=== PATIENT | male | born 1975 | race Hispanic/Latino ===

== ENCOUNTER 2024-12-11 04:17 | Emergency (ER) | payer OTHER ==
[2024-12-11] MEDS ORDERED: cefTRIAXone (ROCEPHIN) 1 GM VIAL ONE (04:51)
[2024-12-11 05:11] LABS: ALT (SGPT) 30 U/L (Less than 45); AST (SGOT) 45 U/L (11-34); Albumin 3.0 g/dL (3.1-4.5); Alkaline Phosphatase 239 U/L (40-110); Anion Gap 13 mmol/L (10-20); BUN (Urea Nitrogen) 12 mg/dL (8.9-20.6); Bilirubin, Total 2.5 mg/dL (0.3-1.2); Calc. Creatinine Clearance 0 mL/min (70-130); Calcium 7.7 mg/dL (7.8-10.44); Carbon Dioxide 13 mmol/L (22-29); Chloride 114 mmol/L (98-107); Globulin 3.0 g/dL (2.4-3.5); Glucose 96 mg/dL (70-105); Potassium 3.6 mmol/L (3.5-5.1); Sodium 136 mmol/L (136-145)
[2024-12-11 06:24] LABS: Anisocytosis MODERATE=16-30 cells HPF (0-5); Burr Cells SLIGHT = 2-5 cells HPF (0-1); Macrocytosis MODERATE=16-30 cells HPF (0-5); Platelet Adequacy Comment Platelets Decreased; Polychromasia SLIGHT = 2-3 cells HPF (0-2)
[2024-12-11 06:25] LABS: #Basophils 0.05 10x3/uL (0.0-0.2); #Eosinophils 0.22 10x3/uL (0.0-0.7); #Monocytes 0.93 10x3/uL (0.11-0.59); #Neutrophils 5.68 10x3/uL (1.40-6.50); %Basophils 0.7 % (0.0-1.0); %Eosinophils 2.9 % (0.0-10.0); %Lymphocytes 10.1 % (21.0-51.0); %Monocytes 12.1 % (0.0-10.0); %Neutrophils 73.8 % (42.0-75.0); Hematocrit 33.7 % (42.0-52.0); Hemoglobin 10.5 g/dL (14.0-18.0); Mean Corpuscular Hemoglobin 23.3 pg (27.0-31.0); Mean Corpuscular Volume 74.7 fL (78.0-98.0); Platelet Count 90 10x3/uL (130-400); Red Blood Cell (RBC) Count 4.51 mill/uL (4.70-6.10); White Blood Cell (WBC) Count 7.69 10x3/uL (4.8-10.8)
[2024-12-11 07:37] LABS: Glucose, Urine (Dipstick) Negative (Negative); Leukocyte Negative (Negative); Protein, Urine (Dipstick) Negative (Neg-Trace); Specific Gravity, Urine 1.010 (1.005-1.030)
[2024-12-11 07:46] LABS: Bacteria/HPF None Seen HPF (None Seen); CAUTI Indications for Culture Pelvic or flank pain; RBC/HPF 0-3 HPF (0-3); WBC/HPF 0-3 HPF (0-3)
[2024-12-11 07:47] LABS: Urine Culture Reflex No No
[2024-12-11] MEDS ORDERED: Iopamidol 370 76% 100 ML VIAL ONE (10:29)
[2024-12-11] MEDS ORDERED: Ibuprofen 800 MG TAB ONE (10:45)
== END 2024-12-11 12:21 | disposition short-term general hospital (02) ==
LOC: EEVIPCON 04:17 → ERS 04:17
DX: R06.02 Shortness of breath (principal); Z99.81 Dependence on supplemental oxygen; Z79.899 Other long term (current) drug therapy
CPT/HCPCS: 71045; 71275; 80053; 81001; 83605; 83880; 84484; 85025; 87040; 87077; 87149; 87186; 87428; 93005; 94760; 96374; J0696; Q9967